=== PATIENT | female | born 1995 | race Hispanic/Latino ===

== ENCOUNTER 2017-06-11 22:48 | Emergency (ER) | payer MEDICAID | END 2017-06-12 | disposition home or self-care (01) | LOC: EDH 22:48 | DX: R07.89 Other chest pain (principal); R03.0 Elevated blood-pressure reading, without diagnosis of hypertension; J45.909 Unspecified asthma, uncomplicated | CPT/HCPCS: 93005 ==

== ENCOUNTER 2024-01-03 19:55 | Emergency (ER) | payer BC, MEDICAID ==
[~2024-01-03] VITALS: Ht 152.4 cm; Wt 103.4 kg
[2024-01-03 20:29] LABS: RAPID GROUP A STREP negative (NEGATIVE)
[2024-01-03 20:35] LABS: SARS-CoV-2, RNA, NAAT POSITIVE SARS CoV-2 (NEGATIVE)
[2024-01-03 20:39] LABS: INFLUENZA TYPE A Negative For Type A (NEGATIVE); INFLUENZA TYPE B Negative For Type B (NEGATIVE)
[2024-01-03 22:02] VITALS: BP 132/84; PULSE 76; RESP 18; O2SAT 98
[2024-01-03] MEDS ORDERED: AZIT250T9 PO (22:13)
[2024-01-03] MEDS ORDERED: BENZ-39 PO (22:13)
== END 2024-01-03 22:24 | disposition home or self-care (01) ==
LOC: EDH 19:55
DX: U07.1 COVID-19 (principal); J45.909 Unspecified asthma, uncomplicated
CPT/HCPCS: 87635; 87804; 87880